=== PATIENT | male | born 2000 | race Caucasian/White ===

== ENCOUNTER 2023-09-13 12:58 | Emergency (ER) | payer BC, OTHER ==
[~2023-09-13] VITALS: Ht 170.2 cm; Wt 64.4 kg
[2023-09-13] MEDS ORDERED: ACET500T58 PO (16:12)
[2023-09-13] MEDS ORDERED: IBUP-1455 PO (16:12)
[2023-09-13] MEDS ORDERED: CEPH500C PO (16:12)
[2023-09-13] MEDS ORDERED: TETANUS-DIPTH-ACEL PERTUSSIS 0.5ML SYR Tdap IM ONE (16:15)
[2023-09-13 17:06] VITALS: BP 117/66; PULSE 112; RESP 18; TEMP 99.2; O2SAT 96
== END 2023-09-13 17:05 | disposition home or self-care (01) ==
LOC: ER 12:58
DX: S01.112A Laceration without foreign body of left eyelid and periocular area, initial encounter (principal); Z88.1 Allergy status to other antibiotic agents; Z88.6 Allergy status to analgesic agent; W51.XXXA Accidental striking against or bumped into by another person, initial encounter; Y93.23 Activity, snow (alpine) (downhill) skiing, snowboarding, sledding, tobogganing and snow tubing; Y92.89 Other specified places as the place of occurrence of the external cause; Y99.8 Other external cause status
CPT/HCPCS: 12013; 90471; 90715